=== PATIENT | female | born 1960 | race Caucasian/White ===

== ENCOUNTER 2017-11-20 16:03 | Inpatient (IN) ==
[2017-11-20] MEDS ORDERED: 0.9 % Sodium Chloride 1,000 ML IVC ONE (16:43)
[2017-11-20] MEDS ORDERED: Acetaminophen 325 MG TABLET PO ONE (16:43)
--- NOTE | 2017-11-20 17:02 | Emergency Department Note ---
Disposition Clinical Impression: Community acquired pneumonia Disposition: Still a Patient Fever HPI - General Chief Complaint: ED Fever Stated Complaint: cough, fever Time Seen by Provider: 11/20/17 16:33 Source: patient Mode of arrival: private vehicle Limitations: no limitations Vital Signs Reviewed: Yes - History of Present Illness HPI Narrative: 57 y/o females presents with two days of productive cough, SOB and fatigue with left sided flank pain that radiates to her L shoulder. She denies CP, abd pain, N/V/D. She was given a prescription from her PCP for steroids yesterday with concerns of bronchitis. - Related Data Allergies Allergy/AdvReac Type Severity Reaction Status Date / Time No Known Allergies Allergy Verified 11/20/17 16:32 Constitutional: Reports: as per HPI Cardiovascular: Denies: chest pain, palpitations, syncope Respiratory: Reports: cough, sputum production Gastrointestinal: Reports: as per HPI Genitourinary: Reports: as per HPI Fever PMH - Past Medical History Medical history: Reports: arthritis, hyperlipidemia, hypertension, other Surgical history: Reports: other Psychiatric history: Reports: anxiety - Social History Smoking Status: Current every day smoker Alcohol use: Reports: none Drug use: Reports: none Physical Exam - General Limitations: no limitations General appearance: alert, in no apparent distress Course Vital Signs Temperature 102 F H 11/20/17 16:29 Pulse Rate 102 11/20/17 16:29 Respiratory Rate 16 11/20/17 16:29 Blood Pressure 125/71 11/20/17 16:29 O2 Sat by Pulse Oximetry 89 11/20/17 16:29 Temperature 102 F H 11/20/17 16:29 Pulse Rate 102 11/20/17 16:29 Respiratory Rate 16 11/20/17 16:29 Blood Pressure 125/71 11/20/17 16:29 O2 Sat by Pulse Oximetry 89 11/20/17 16:29 Oxygen Delivery Oxygen Delivery Room Air
[2017-11-20] MEDS ORDERED: Ipratropium/Albuterol Neb 3 ML IH ONE (17:40)
[2017-11-20] MEDS ORDERED: methylPREDNISolone 125 MG/2 ML VIAL IVP ONE (17:40)
[2017-11-20 17:46] LABS: Basophils % 0.2 %
[2017-11-20 17:47] LABS: Basophils # 0.1 K/mcL (0.0-0.2); Hematocrit 32.3 % (35.3-44.9); Hemoglobin 10.1 g/dL (11.5-15.4); Immature Granulocytes % 1.4 % (0-4); Lymphocytes # 1.8 K/mcL (0.6-4.6); Lymphocytes % 6.4 %; Mean Corpuscular HGB Conc 31.3 g/dL (31.6-35.5); Mean Corpuscular Hemoglobin 26.3 pg (28.0-33.3); Mean Corpuscular Volume 84.1 fL (83.0-100.0); Mean Platelet Volume 10.9 fL (9.4-12.4); Monocytes # 1.4 K/mcL (0.0-1.3); Monocytes % 5.1 %; Neutrophils # 24.5 K/mcL (1.6-8.9); Platelet Count 162 K/mcL (140-400); Red Blood Count 3.84 M/mcL (3.82-4.97); Red Cell Distribution Width 16.8 % (11.5-14.5); Segmented Neutrophils % 86.9 %
[2017-11-20 18:08] LABS: Hypochromasia Present (Not Present); Platelet Estimate Normal (Normal); Reactive Lymphocytes Present (Not Present); Troponin I 0.03 ng/mL (< 0.04)
[2017-11-20 18:16] LABS: BUN/Creatinine Ratio 19 (6-26); Blood Urea Nitrogen 16 mg/dL (6-20); Calcium 8.8 mg/dL (8.6-10.3); Carbon Dioxide 25 mEq/L (23-29); Chloride 105 mEq/L (98-107); Glucose 108 mg/dL (70-105); Osmolality,Calculated 288 (280-300); Potassium 3.5 mEq/L (3.5-5.1); Sodium 138 mEq/L (136-145); eGFR For Non-African Americans > 60 (> 60)
--- NOTE | 2017-11-20 18:17 | Emergency Department Note ---
Disposition Clinical Impression: COPD exacerbation Community acquired pneumonia Qualifiers: Laterality: left Lung location: lower lobe of lung Qualified Code(s): J18.1 - Lobar pneumonia, unspecified organism Sepsis Qualifiers: Sepsis type: sepsis due to unspecified organism Qualified Code(s): A41.9 - Sepsis, unspecified organism Disposition: Admitted As Inpatient Referrals: Tabby Pelaez MD [Primary Care Provider] - Forms: ED Satisfaction Letter General Adult HPI - General Chief complaint: ED Fever Stated complaint: cough, fever Time Seen by Provider: 11/20/17 16:33 Source: patient Mode of arrival: private vehicle Limitations: no limitations Nursing Notes Reviewed: Yes Vital Signs Reviewed: Yes - History of Present Illness HPI Narrative: I have re-performed and reviewed the history documented by the medical student, and I confirm its accuracy except as noted below 57-year-old female history of non-oxygen dependent COPD presenting with several days of cough with fever starting today. No sick contacts. Productive sputum. Temperature of 101 prior to arrival at home. Denies any chest pain or shortness of breath. She called her doctor yesterday who phoned in steroids for her to start. No history of CAD, DVT or PE. No other complaints. Pt Subjective Complaint: Cough, fever Onset (ago): day(s) Pain Scale: 7 Consistency: constant Improves with: nothing Worsens with: nothing Associated symptoms: Reports: cough, fever/chills. Denies: chest pain, nausea/ vomiting, shortness of breath Treatments Prior to Arrival: none - Related Data Home Medications Medication Instructions Recorded Confirmed Atorvastatin [Lipitor] 40 mg PO HS 11/20/17 11/20/17 Citalopram [CeleXA] 20 mg PO DAILY 11/20/17 11/20/17 Ergocalciferol (VITAMIN D2) 50,000 unit PO QWEEK 11/20/17 11/20/17 [Vitamin D2] Ferrous Sulfate [Iron] 325 mg PO DAILY 11/20/17 11/20/17 Furosemide [Lasix] 20 mg PO DAILY 11/20/17 11/20/17 Isosorbide MONOnitrate (24 HR) 30 mg PO DAILY 11/20/17 11/20/17 [Imdur] LORazepam [Ativan] 0.5 mg PO BID PRN 11/20/17 11/20/17 Labetalol HCl 200 mg PO BID 11/20/17 11/20/17 PredniSONE [Deltasone] 40 mg PO DAILY 11/20/17 11/20/17 amLODIPine [Norvasc] 5 mg PO BID 11/20/17 11/20/17 cloNIDine HCl [CloNIDine HCl] 0.2 mg PO DAILY 11/20/17 11/20/17 hydrALAZINE [HydrALAZINE] 25 mg PO Q8HR 11/20/17 11/20/17 Allergies Allergy/AdvReac Type Severity Reaction Status Date / Time No Known Allergies Allergy Verified 11/20/17 16:32 All systems ED: reviewed and negative except as stated. Constitutional: Reports: fever, chills Cardiovascular: Denies: chest pain, palpitations Respiratory: Reports: cough, dyspnea, wheezes, sputum production Past Medical History - Past Medical History Attestation: Yes The following information was validated with the patient. Source: patient Medical history: Reports: arthritis, hyperlipidemia, hypertension, other Surgical history: Reports: other Psychiatric history: Reports: anxiety - Social History Smoking Status: Current every day smoker Alcohol use: Reports: none Drug use: Reports: none Physical Exam - General Limitations: no limitations General appearance: alert, in no apparent distress - Head Head exam: atraumatic, normocephalic - Eye Eye exam: Present: normal appearance - ENT ENT exam: normal exam - Neck Neck exam: Present: normal inspection - Chest Chest inspection: Present: normal inspection, symmetric chest wall rise - Respiratory Respiratory exam: Present: other (Global end expiratory wheezing with left lower diminished breath sounds.) - Cardiovascular Cardiovascular exam: Present: normal rhythm, tachycardia, normal heart sounds - Abdominal Exam Abdominal exam: Present: soft, Non-Tender. Absent: tenderness, distention, rigidity - Extremities Exam Extremities exam: Present: normal inspection, full ROM - Expanded Upper Extremity Exam Shoulder exam: Present: normal inspection, full ROM Arm exam: Present: normal inspection, full ROM Elbow exam: Present: normal inspection, full ROM Forearm/Wrist exam: Present: normal inspection, full ROM Hand exam: Present: normal inspection, full ROM - Expanded Lower Extremity Exam Hip/Pelvis exam: Present: normal inspection, full ROM Upper leg exam: Present: normal inspection, full ROM Knee exam: Present: normal inspection, full ROM Lower leg exam: Present: normal inspection, full ROM Ankle exam: Present: normal inspection, full ROM Foot/toe exam: Present: normal inspection, full ROM - Skin Skin exam: Present: warm, dry Course Course Narrative: Patient seen and examined. Vital signs reviewed. Plan for EKG, chest x-ray, labs including lactate and blood cultures given her fever and tachycardia. DuoNeb treatments and steroids ordered. - Reevaluation(s) Reevaluation #1: Patient ambulated here desaturating to 88%. Agreeable with admission. Vital Signs Temperature 102 F H 11/20/17 16:29 Pulse Rate 102 11/20/17 16:29 Respiratory Rate 16 11/20/17 16:29 Blood Pressure 125/71 11/20/17 16:29 O2 Sat by Pulse Oximetry 89 11/20/17 16:29 Temperature 98.9 F 11/20/17 20:45 Pulse Rate 83 11/20/17 20:45 Respiratory Rate 18 11/20/17 20:45 Blood Pressure 113/68 11/20/17 20:45 O2 Sat by Pulse Oximetry 96 11/20/17 20:45 Oxygen Delivery Oxygen Delivery Nasal Cannula Medical Decision Making - [facility] Narrative Medical decision making narrative: 57-year-old female presenting with several days of cough and shortness of breath. Recent bronchitis on steroids. Chest x-ray here showing a left lower lobe consolidation. She was hypoxic here with ambulation. Leukocytosis of 28 in the setting of pneumonia as well as recent steroid use. The patient given IV fluids, Tylenol, Levaquin for [facility] pneumonia. She received DuoNeb treatments and steroids as well. - Lab Data Lab results reviewed: Yes I reviewed the patient's lab results. Result diagrams: 11/20/17 17:25 11/20/17 17:25 Lab Results 11/20/17 11/20/17 11/20/17 Range/Units 17:25 17:25 17:25 WBC 28.2 H (4.3-11.1) K/mcL RBC 3.84 (3.82-4.97) M/mcL Hgb 10.1 L (11.5-15.4) g/dL Hct 32.3 L (35.3-44.9) % MCV 84.1 (83.0-100.0) fL MCH 26.3 L (28.0-33.3) pg MCHC 31.3 L (31.6-35.5) g/dL RDW 16.8 H (11.5-14.5) % Plt Count 162 (140-400) K/mcL MPV 10.9 (9.4-12.4) fL Immature Gran % 1.4 (0-4) % Seg Neutrophils % 86.9 % Lymphocytes % 6.4 % Monocytes % 5.1 % Eosinophils % 0.0 % Basophils % 0.2 % Neutrophils # 24.5 H (1.6-8.9) K/mcL Lymphocytes # 1.8 (0.6-4.6) K/mcL Monocytes # 1.4 H (0.0-1.3) K/mcL Eosinophils # 0.0 (0.0-0.6) K/mcL Basophils # 0.1 (0.0-0.2) K/mcL Reactive Lymphocytes Present A (Not Present) Platelet Estimate Normal (Normal) Hypochromasia Present A (Not Present) Sodium 138 (136-145) mEq/L Potassium 3.5 (3.5-5.1) mEq/L Chloride 105 (98-107) mEq/L Carbon Dioxide 25 (23-29) mEq/L BUN 16 (6-20) mg/dL Creatinine 0.83 (0.60-1.20) mg/dL Est GFR ( Amer) > 60 (> 60) Est GFR (Non-Af Amer) > 60 (> 60) BUN/Creatinine Ratio 19 (6-26) Glucose 108 H (70-105) mg/dL Calculated Osmolality 288 (280-300) Lactic Acid 1.0 (0.5-2.2) mmol/L Calcium 8.8 (8.6-10.3) mg/dL Troponin I 0.03 (< 0.04) ng/mL - Radiology Data Radiology results reviewed: Yes I reviewed the patient's radiology results. Chest X-Ray 11/20/17 16:43 IMPRESSION: Left basilar consolidation, concerning for pneumonia. Recommend follow-up radiographs after treatment to document resolution. Small left effusion. D/ / Miles Lux MD / Miles Lux MD Interpreting Provider: Miles Lux MD - EKG Data EKG #1 EKG attestation: Yes I reviewed and interpreted this EKG. EKG results narrative: EKG demonstrates sinus tachycardia with a rate of 104. Normal axis. Normal intervals. Normal R-wave progression. No gross ST elevations or depressions. No acute ischemic findings. No significant changes from previous EKG dated 04/07. Jaleesa - Jaleesa Situation: Demographics, MOA Background: Presenting Complaint, Relevant PMH, Meds, & Allergies Assessment: Vital Signs, Course and respsone to treatment, Exam Concerns, Patient/Family Expectation, Pertinant Lab Results Recommendation: Barrier(s) to disposition, Recommendation based on pending studies, treatments, or consults SHazel Report Given to: Dr. Sugey Lazcano Repor Time: 20:59 Attestation Statement - Attestation Attestation: I, Lenny Beavers, examined this patient and my medical decision-making was reviewed with the SUPER[employer]/PA/Advanced Practice Nurse/Resident Physician. I agree with the documented findings, disposition and treatment plan as described except to the extent set forth below. 87-year-old female presents emergency Department with concerns of difficulty breathing and cough. Patient states symptoms have been worsening over the past few days. She was prescribed steroids by her primary care provider yesterday and has taken multiple list. Patient reported a fever and worsening of her symptoms today around 11:00. Patient has a likely pneumonia on her chest x- ray. She will be treated for community-acquired pneumonia. Patient initially wanted to return home however with ambulation she desatted to 88%. She felt comfortable with the plan for admission to the hospital for further care and evaluation.
[2017-11-20] MEDS ORDERED: Levofloxacin 750 MG/150 ML 750 MG/150 ML BAG IVPB ONE (18:43)
[2017-11-20] MEDS ORDERED: Naloxone 0.4 MG/ML INJ IVP PRN (21:05)
--- NOTE | 2017-11-20 21:12 | Internal Med History&Physical ---
Date of Encounter: 11/20/17 Time of Encounter: 21:10 Internal Medicine - H&P: HPI Chief complaint: Left chest wall pain Admitted From: Home Plans for Post Hospital Care: Home History of present illness: Ms. Frost is a 57 year old female presented with chief complaint of left chest wall pain located left axillary line between ribs 8 and 9 this started when she woke up this morning at 6 AM. Her pain worsened with coughing, deep inspiration. She also states she had fever of 101 at home. She reports for the past 2 days she has had worsening cough, productive sputum and was given prednisone by her PCP for bronchitis. Patient also reports chills, runny nose, congestion. She denies sore throat, sick contacts. At home she is not on oxygen per currently is requiring 2 L. In the ER chest x-ray showed left lower lobe consolidation and she had elevated white blood cell count of 28 with a fever of 102 degrees. The patient has a history of [id number] smoking. Past Med Surg Social Fam HX - Past Medical History Medical history: arthritis, hyperlipidemia, hypertension, other Additional medical history: chronic kidney disease, renal artery stenosis Psychiatric history: anxiety - Past Surgical History Surgical History: other, vascular surgery (Bilateral renal artery stents) Additional surgical history: tubal - Social History Smoking Status: Current every day smoker Alcohol use: none Drug use: none Occupational status: employed ([employer] cook) - Family History Brother Living Status: Still Living Hx Family Cancer: Yes (Colon cancer) Sister Living Status: Hx Family Cancer: Yes Father Living Status: Hx Family Cancer: Yes (Lung cancer) Internal Medicine - H&P: Meds Atorvastatin [Lipitor] 40 mg PO HS 11/20/17 [History] Citalopram [CeleXA] 20 mg PO DAILY 11/20/17 [History] Ergocalciferol (VITAMIN D2) [Vitamin D2] 50,000 unit PO QWEEK 11/20/17 [History] Ferrous Sulfate [Iron] 325 mg PO DAILY 11/20/17 [History] Furosemide [Lasix] 20 mg PO DAILY 11/20/17 [History] Isosorbide MONOnitrate (24 HR) [Imdur] 30 mg PO DAILY 11/20/17 [History] LORazepam [Ativan] 0.5 mg PO BID PRN 11/20/17 [History] Labetalol HCl 200 mg PO BID 11/20/17 [History] PredniSONE [Deltasone] 40 mg PO DAILY 11/20/17 [History] amLODIPine [Norvasc] 5 mg PO BID 11/20/17 [History] cloNIDine HCl [CloNIDine HCl] 0.2 mg PO DAILY 11/20/17 [History] hydrALAZINE [HydrALAZINE] 25 mg PO Q8HR 11/20/17 [History] 3 Allergy/AdvReac Type Severity Reaction Status Date / Time No Known Allergies Allergy Verified 11/20/17 16:32 All Systems PM: A 10-system review of systems was performed and is negative for pertinent findings except as documented above in the HPI. Review of systems: Constitutional: Ports fever chills HEENT: Denies headache, vision changes, neck pain, sore throat, ear discharge reports rhinorrhea Heart: Denies chest pain palpitations Lungs: Reports shortness of breath, cough, sputum production Abdomen: Denies abdominal pain nausea vomiting diarrhea Back: Denies back pain Kidney: Denies dysuria, hematuria Skin: Denies rash, lesions Extremities: Denies swelling, pain Neuro: Denies numbness and tingling - Constitutional Vitals: Temp Pulse Resp BP Pulse Ox 98.9 F 83 18 113/68 96 11/20/17 20:45 11/20/17 20:45 11/20/17 20:45 11/20/17 20:45 11/20/17 20:45 Exam: General: without distress HEENT: Head atraumatic, normocephalic, EOMI, PERRL, neck nontender to palpation , absent lymphadenopathy, Moist Mucous Membranes, absent erythema Heart: Regular rate and rhythm with no murmur Lungs: Diminished lung sounds bilaterally greater on the left lower lobe. Poor respiratory effort. Abdomen: Soft nontender, nondistended positive bowel sounds Skin: warm and dry, absent rash Extremities: Mild pedal edema bilaterally Neuro: Cranial nerves II through XII intact, UE and LE sensation equal bilaterally, UE and LEstrength 5/5, alert oriented 3, Vascular: Pedal and radial pulses 2 out of 4 Internal Med - H&P Results - Labs CBC & Chem 7: 11/20/17 17:25 11/20/17 17:25 Labs: Short CBC 11/20/17 Range/Units 17:25 WBC 28.2 H (4.3-11.1) K/mcL Hgb 10.1 L (11.5-15.4) g/dL Hct 32.3 L (35.3-44.9) % Plt Count 162 (140-400) K/mcL Neutrophils # 24.5 H (1.6-8.9) K/mcL BMP 11/20/17 17:25 Sodium 138 Potassium 3.5 Chloride 105 Carbon Dioxide 25 BUN 16 Creatinine 0.83 Glucose 108 H Calcium 8.8 Cardiac Enzymes 11/20/17 Range/Units 17:25 Troponin I 0.03 (< 0.04) ng/mL - Impressions ITS Impressions Chest X-Ray 11/20/17 16:43 IMPRESSION: Left basilar consolidation, concerning for pneumonia. Recommend follow-up radiographs after treatment to document resolution. Small left effusion. D/ / Miles Lux MD / Miles Lux MD Interpreting Provider: Miles Lux MD - Assessment and plan (1) Acute and chronic respiratory failure with hypoxia Current Visit: Yes Status: Acute Assessment and plan: 57-year-old female presents with chief complaint of left pleuritic chest pain, shortness of breath along with cough and productive sputum found to have left lower lobe pneumonia on chest x-ray Patient does not use oxygen at home is currently on 4 L. We will start patient on ceftriaxone and azithromycin, DuoNeb's, prednisone and continue oxygen supplementation with goal of oxygen saturation of 88%. mucinex. (2) Sepsis Current Visit: Yes Status: Acute Assessment and plan: Patient sepsis secondary to pneumonia Patient was febrile, tachycardic, tachypneic Lactic acid within normal limits. She will be receiving 3 L total of normal saline She is on antibiotics as above. Qualifiers: Sepsis type: sepsis due to unspecified organism Qualified Code(s): A41.9 - Sepsis, unspecified organism (3) Community acquired pneumonia Current Visit: Yes Status: Acute Assessment and plan: Patient has findings of left lower normal pneumonia, bacterial She will be treated with IV antibiotics as stated above. Blood cultures drawn, de-escalate antibiotics as per culture sensitivity. Ordering urine Legionella and streptococcal pneumonia antigens. Qualifiers: Laterality: left Lung location: lower lobe of lung Qualified Code(s): J18.1 - Lobar pneumonia, unspecified organism (4) COPD exacerbation Current Visit: Yes Status: Acute Assessment and plan: Secondary to coming acquired pneumonia Patient will be treated with IV antibiotics, DuoNeb's, prednisone (5) History of hypertension Current Visit: Yes Status: Acute Assessment and plan: Patient has a history of hypertension currently controlled We will continue clonidine, Lasix, amlodipine, labetalol. (6) History of tobacco abuse Current Visit: Yes Status: Acute Assessment and plan: Patient has a history of tobacco abuse [id number] She was educated on smoking cessation and its benefits. (7) DVT prophylaxis Current Visit: Yes Status: Acute Assessment and plan: Heparin subcutaneous (8) History of hyperlipidemia Current Visit: Yes Status: Acute Assessment and plan: Continue statin. - Time Spent With Patient Total time spent is greater than 50% in coordination of care (as documented) at patient's floor/unit and/or counseling patient:
[2017-11-20] MEDS ORDERED: Acetaminophen 325 MG TABLET PO PRN (21:28)
[2017-11-20] MEDS ORDERED: cefTRIAXone 2,000 MG in Water for inj. (sterile) 20 ML 20 ML IVP SCH (22:00)
[2017-11-20] MEDS ORDERED: Azithromycin 500 MG in D5% in Water 250 ML IVPB SCH (22:00)
[2017-11-20] MEDS: Ipratropium/Albuterol Neb 3 ML IH SCH (22:24)
[2017-11-20] MEDS: 0.9 % Sodium Chloride 1,000 ML IVC SCH (22:55)
[2017-11-20] MEDS: *HR* Heparin 5,000 UNIT/ML VIAL SQ SCH (22:56)
[2017-11-21] MEDS ORDERED: hydrALAZINE 25 MG TABLET PO SCH
[2017-11-21] MEDS: Ipratropium/Albuterol Neb 3 ML IH SCH ×4 (03:44→21:49)
[2017-11-21 04:37] LABS: Basophils % 0.1 %
[2017-11-21 04:39] LABS: Hematocrit 32.5 % (35.3-44.9); Hemoglobin 10.2 g/dL (11.5-15.4); Immature Granulocytes % 1.4 % (0-4); Lymphocytes # 1.1 K/mcL (0.6-4.6); Lymphocytes % 3.7 %; Mean Corpuscular HGB Conc 31.4 g/dL (31.6-35.5); Mean Corpuscular Hemoglobin 26.8 pg (28.0-33.3); Mean Corpuscular Volume 85.5 fL (83.0-100.0); Mean Platelet Volume 10.7 fL (9.4-12.4); Monocytes # 0.5 K/mcL (0.0-1.3); Monocytes % 1.6 %; Neutrophils # 28.3 K/mcL (1.6-8.9); Platelet Count 146 K/mcL (140-400); Red Cell Distribution Width 16.9 % (11.5-14.5); Segmented Neutrophils % 93.2 %
[2017-11-21 04:57] LABS: BUN/Creatinine Ratio 22 (6-26); Blood Urea Nitrogen 15 mg/dL (6-20); Calcium 8.4 mg/dL (8.6-10.3); Carbon Dioxide 25 mEq/L (23-29); Chloride 108 mEq/L (98-107); Glucose 210 mg/dL (70-105); Osmolality,Calculated 293 (280-300); Potassium 3.5 mEq/L (3.5-5.1); Sodium 138 mEq/L (136-145); eGFR For Non-African Americans > 60 (> 60)
[2017-11-21 05:18] LABS: Platelet Estimate Normal (Normal)
[2017-11-21] MEDS: *HR* Heparin 5,000 UNIT/ML VIAL SQ SCH ×3 (06:13→22:15)
[2017-11-21] MEDS: 0.9 % Sodium Chloride 1,000 ML IVC SCH (08:36)
[2017-11-21] MEDS: cefTRIAXone 2,000 MG in Water for inj. (sterile) 20 ML 20 ML IVP SCH (08:38)
[2017-11-21] MEDS: predniSONE 20 MG TABLET PO SCH (08:38)
[2017-11-21] MEDS: Furosemide 20 MG TABLET PO SCH (08:38)
[2017-11-21] MEDS: cloNIDine HCl 0.1 MG TABLET PO SCH (08:38)
[2017-11-21] MEDS: Isosorbide MONOnitrate (24 HR) 30 MG TAB.ER.24H PO SCH (08:38)
[2017-11-21] MEDS: amLODIPine 5 MG TABLET PO SCH ×2 (08:38→22:15)
[2017-11-21] MEDS: hydrALAZINE 25 MG TABLET PO SCH ×3 (08:38→22:14)
--- NOTE | 2017-11-21 09:23 | Internal Med Progress Note ---
Hospitalist Progress Note - Encounter Date of Encounter: 11/21/17 Time of Encounter: 11:00 - Subjective Interval History: Patient presented with fever and cough found to have sepsis secondary to pneumonia and COPD exacerbation Reports that she is feeling somewhat better and cough has decreased slightly. Will wean O2 as tolerates - Exam Vitals: Temp Pulse Resp BP Pulse Ox 98.4 F 88 18 119/55 92 11/21/17 07:29 11/21/17 07:29 11/21/17 07:29 11/21/17 07:29 11/21/17 07:29 Exam: Gen.: Nonacute distress, alert and oriented 3 ENT: Mucosal membranes moist Respiratory: Lungs are clear to auscultation bilaterally without any wheezing rhonchi or rales Cardiovascular: Normal S1 and S2 regular rate rhythm no murmurs rubs or gallops Abdomen: Soft, nontender and nondistended with positive bowel sounds Extremities: No lower extremity edema Skin: Normal color - Assessment and Plan (1) Sepsis Current Visit: Yes Status: Acute Assessment and Plan: Patient sepsis secondary to pneumonia Patient has received a total of 2 L of fluid bolus and on IV antibiotics She no longer tachycardic and is currently afebrile; she is leukocytosis worsening: wbc 28.2->30.4 Continue current management as below (2) Community acquired pneumonia Current Visit: Yes Status: Acute Assessment and Plan: X-ray finding findings of left lower normal pneumonia Worsening of leukocytosis but patient afebrile Blood cultures, urine Legionella and streptococcal pneumonia antigens pending Continue day 2 IV ceftriaxone and IV azithromycin (3) COPD exacerbation Current Visit: Yes Status: Acute Assessment and Plan: Secondary to the above Will continue scheduled DuoNeb's and oral prednisone (4) Acute and chronic respiratory failure with hypoxia Current Visit: Yes Status: Acute Assessment and Plan: Respiratory failure secondary to pneumonia and COPD exacerbation as above Will wean supplemental oxygenation as tolerates to keep O2 sats between 88 and 92% (5) History of hypertension Current Visit: Yes Status: Acute Assessment and Plan: Controlled; continue clonidine, Lasix, amlodipine, labetalol. (6) History of tobacco abuse Current Visit: Yes Status: Acute Assessment and Plan: Patient has a history of tobacco abuse [id number] She was educated on smoking cessation and its benefits. (7) History of hyperlipidemia Current Visit: Yes Status: Acute Assessment and Plan: Continue statin. (8) DVT prophylaxis Current Visit: Yes Status: Acute Assessment and Plan: Heparin subcutaneous - Time Spent with Patient Total time spent is greater than 50% in coordination of care (as documented) at patient's floor/unit and/or counseling patient: Internal Medicine: Result - Labs CBC & Chem 7: 11/21/17 04:14 11/21/17 04:14 Labs: Short CBC 11/21/17 Range/Units 04:14 WBC 30.4 H* (4.3-11.1) K/mcL Hgb 10.2 L (11.5-15.4) g/dL Hct 32.5 L (35.3-44.9) % Plt Count 146 (140-400) K/mcL Neutrophils # 28.3 H (1.6-8.9) K/mcL BMP 11/21/17 04:14 Sodium 138 Potassium 3.5 Chloride 108 H Carbon Dioxide 25 BUN 15 Creatinine 0.68 Glucose 210 H Calcium 8.4 L Consult Discharge Plan - Plan Referrals: Tabby Pelaez MD [Primary Care Provider] - (1) Sepsis Qualifiers: Sepsis type: sepsis due to unspecified organism Qualified Code(s): A41.9 - Sepsis, unspecified organism (2) Community acquired pneumonia Qualifiers: Laterality: left Lung location: lower lobe of lung Qualified Code(s): J18.1 - Lobar pneumonia, unspecified organism
[2017-11-21] MEDS: Azithromycin 500 MG in D5% in Water 250 ML IVPB SCH (16:50)
[2017-11-22] MEDS: Ipratropium/Albuterol Neb 3 ML IH SCH ×4 (03:13→22:34)
[2017-11-22 05:07] LABS: Basophils % 0.1 %; Lymphocytes % 6.5 %
[2017-11-22 05:08] LABS: Hematocrit 29.2 % (35.3-44.9); Immature Granulocytes % 1.3 % (0-4); Lymphocytes # 1.8 K/mcL (0.6-4.6); Mean Corpuscular HGB Conc 30.8 g/dL (31.6-35.5); Mean Corpuscular Hemoglobin 26.2 pg (28.0-33.3); Mean Corpuscular Volume 85.1 fL (83.0-100.0); Mean Platelet Volume 11.3 fL (9.4-12.4); Monocytes # 0.8 K/mcL (0.0-1.3); Platelet Count 134 K/mcL (140-400); Red Blood Count 3.43 M/mcL (3.82-4.97); Segmented Neutrophils % 89.1 %
[2017-11-22 05:10] LABS: Neutrophils # 24.1 K/mcL (1.6-8.9)
[2017-11-22 05:28] LABS: BUN/Creatinine Ratio 28 (6-26); Blood Urea Nitrogen 21 mg/dL (6-20); Calcium 8.8 mg/dL (8.6-10.3); Carbon Dioxide 23 mEq/L (23-29); Chloride 111 mEq/L (98-107); Glucose 115 mg/dL (70-105); Osmolality,Calculated 294 (280-300); Potassium 3.4 mEq/L (3.5-5.1); Sodium 140 mEq/L (136-145); eGFR For Non-African Americans > 60 (> 60)
[2017-11-22 05:35] LABS: Platelet Estimate Normal (Normal)
[2017-11-22] MEDS: *HR* Heparin 5,000 UNIT/ML VIAL SQ SCH ×3 (05:56→22:03)
--- NOTE | 2017-11-22 08:22 | Internal Med Progress Note ---
Hospitalist Progress Note - Encounter Date of Encounter: 11/22/17 Time of Encounter: 11:00 - Subjective Interval History: Patient presented with fever and cough found to have sepsis secondary to pneumonia and COPD exacerbation with acute hypoxic respiratory failure Patient was weaned off supplemental oxygenation this morning however still with significant leukocytosis with not much improvement Patient also still with productive cough - Exam Vitals: Temp Pulse Resp BP Pulse Ox 98.3 F 97 18 114/67 93 11/22/17 07:25 11/22/17 07:11/22/17 07:11/22/17 07:11/22/17 07:25 Exam: Gen.: Nonacute distress, alert and oriented 3 ENT: Mucosal membranes moist Respiratory: Patient with bilateral decreased expiratory wheezes and not with good airflow Cardiovascular: Normal S1 and S2 regular rate rhythm no murmurs rubs or gallops Abdomen: Soft, nontender and nondistended with positive bowel sounds Extremities: No lower extremity edema Skin: Normal color - Assessment and Plan (1) Community acquired pneumonia Current Visit: Yes Status: Acute Assessment and Plan: Chest x-ray showed left basilar consolidation Patient with not much improvement in leukocytosis(WBC 28.2->30.4->27.0) but has been afebrile Legionella and streptococcal pneumonia antigens negative and blood cultures pending Continue day 3 IV ceftriaxone and IV azithromycin (2) COPD exacerbation Current Visit: Yes Status: Acute Assessment and Plan: Secondary to the above Will continue scheduled DuoNeb's and oral prednisone (3) Acute and chronic respiratory failure with hypoxia Current Visit: Yes Status: Acute Assessment and Plan: Respiratory failure secondary to pneumonia and COPD exacerbation as above Patient was able to be weaned off supplemental oxygenation this afternoon (4) Sepsis Current Visit: Yes Status: Acute Assessment and Plan: Resolved; continue to monitor (5) History of hypertension Current Visit: Yes Status: Acute Assessment and Plan: Controlled; continue clonidine, Lasix, amlodipine, labetalol. (6) History of tobacco abuse Current Visit: Yes Status: Acute Assessment and Plan: Patient has a history of tobacco abuse [id number] She was educated on smoking cessation and its benefits. (7) History of hyperlipidemia Current Visit: Yes Status: Acute Assessment and Plan: Continue statin. (8) DVT prophylaxis Current Visit: Yes Status: Acute Assessment and Plan: Heparin subcutaneous - Time Spent with Patient Total time spent is greater than 50% in coordination of care (as documented) at patient's floor/unit and/or counseling patient: Internal Medicine: Result - Labs CBC & Chem 7: 11/22/17 04:43 11/22/17 04:43 Labs: Short CBC 11/22/17 Range/Units 04:43 WBC 27.0 H (4.3-11.1) K/mcL Hgb 9.0 L (11.5-15.4) g/dL Hct 29.2 L (35.3-44.9) % Plt Count 134 L (140-400) K/mcL Neutrophils # 24.1 H (1.6-8.9) K/mcL BMP 11/22/17 04:43 Sodium 140 Potassium 3.4 L Chloride 111 H Carbon Dioxide 23 BUN 21 H Creatinine 0.75 Glucose 115 H Calcium 8.8 Consult Discharge Plan - Plan Referrals: Tabby Pelaez MD [Primary Care Provider] - (1) Community acquired pneumonia Qualifiers: Laterality: left Lung location: lower lobe of lung Qualified Code(s): J18.1 - Lobar pneumonia, unspecified organism (4) Sepsis Qualifiers: Sepsis type: sepsis due to unspecified organism Qualified Code(s): A41.9 - Sepsis, unspecified organism
[2017-11-22] MEDS: predniSONE 20 MG TABLET PO SCH (08:41)
[2017-11-22] MEDS: cloNIDine HCl 0.1 MG TABLET PO SCH ×2 (08:42→08:54)
[2017-11-22] MEDS: hydrALAZINE 25 MG TABLET PO SCH ×3 (08:42→20:23)
[2017-11-22] MEDS: amLODIPine 5 MG TABLET PO SCH ×2 (08:42→20:23)
[2017-11-22] MEDS: Isosorbide MONOnitrate (24 HR) 30 MG TAB.ER.24H PO SCH (08:43)
[2017-11-22] MEDS: Furosemide 20 MG TABLET PO SCH (08:43)
[2017-11-22] MEDS: cefTRIAXone 2,000 MG in Water for inj. (sterile) 20 ML 20 ML IVP SCH (08:46)
[2017-11-22] MEDS: Azithromycin 500 MG in D5% in Water 250 ML IVPB SCH (17:11)
[2017-11-23] MEDS: Ipratropium/Albuterol Neb 3 ML IH SCH ×2 (03:19→10:48)
[2017-11-23 03:40] LABS: Basophils % 0.1 %; Hematocrit 30.2 % (35.3-44.9); Hemoglobin 9.5 g/dL (11.5-15.4); Immature Granulocytes % 0.9 % (0-4); Lymphocytes # 2.6 K/mcL (0.6-4.6); Lymphocytes % 12.4 %; Mean Corpuscular HGB Conc 31.5 g/dL (31.6-35.5); Mean Corpuscular Hemoglobin 26.5 pg (28.0-33.3); Mean Corpuscular Volume 84.4 fL (83.0-100.0); Mean Platelet Volume 11.3 fL (9.4-12.4); Monocytes # 0.8 K/mcL (0.0-1.3); Monocytes % 3.7 %; Neutrophils # 17.1 K/mcL (1.6-8.9); Platelet Count 160 K/mcL (140-400); Red Blood Count 3.58 M/mcL (3.82-4.97); Red Cell Distribution Width 17.1 % (11.5-14.5); Segmented Neutrophils % 82.9 %
[2017-11-23 03:59] LABS: BUN/Creatinine Ratio 26 (6-26); Blood Urea Nitrogen 16 mg/dL (6-20); Calcium 8.7 mg/dL (8.6-10.3); Carbon Dioxide 25 mEq/L (23-29); Chloride 111 mEq/L (98-107); Glucose 95 mg/dL (70-105); Osmolality,Calculated 297 (280-300); Potassium 3.2 mEq/L (3.5-5.1); Sodium 143 mEq/L (136-145); eGFR For Non-African Americans > 60 (> 60)
[2017-11-23] MEDS: *HR* Heparin 5,000 UNIT/ML VIAL SQ SCH (05:31)
[2017-11-23] MEDS ORDERED: Potassium Chloride Elixir 20 MEQ/15 ML UDC PO ONE (05:44)
[2017-11-23] MEDS: Furosemide 20 MG TABLET PO SCH (08:20)
[2017-11-23] MEDS: amLODIPine 5 MG TABLET PO SCH (08:21)
[2017-11-23] MEDS: predniSONE 20 MG TABLET PO SCH (08:21)
[2017-11-23] MEDS: hydrALAZINE 25 MG TABLET PO SCH (08:21)
[2017-11-23] MEDS: Isosorbide MONOnitrate (24 HR) 30 MG TAB.ER.24H PO SCH (08:21)
[2017-11-23] MEDS: cefTRIAXone 2,000 MG in Water for inj. (sterile) 20 ML 20 ML IVP SCH (08:22)
[2017-11-23] MEDS: cloNIDine HCl 0.1 MG TABLET PO SCH (08:28)
[2017-11-23 11:06] VITALS: BP 134/73
--- NOTE | 2017-11-23 11:43 | Discharge Summary ---
- NOTES TO OUTPATIENT PROVIDER Notes to Outpatient Provider: Patient to follow-up with primary care provider for resolution of leukocytosis Date of Encounter: 11/23/17 Time of Encounter: 11:00 - Discharge Diagnosis (1) Community acquired pneumonia Priority: Primary Status: Acute Qualifiers: Laterality: left Lung location: lower lobe of lung Qualified Code(s): J18.1 - Lobar pneumonia, unspecified organism (2) COPD exacerbation Priority: Primary Status: Acute (3) Acute and chronic respiratory failure with hypoxia Priority: Primary Status: Acute (4) Sepsis Priority: Primary Status: Acute Qualifiers: Sepsis type: sepsis due to unspecified organism Qualified Code(s): A41.9 - Sepsis, unspecified organism (5) History of hypertension Priority: Secondary Status: Acute (6) History of tobacco abuse Priority: Secondary Status: Acute (7) History of hyperlipidemia Priority: Secondary Status: Acute Hospital course: Patient is a 57-year-old female with past medical history significant for hypertension, hyperlipidemia and chronic kidney disease presents the ER on due to cough and fevers. In the ER, patient was found to have left basilar consolidation on chest x-ray with leukocytosis. Patient was also found to have acute hypoxic respiratory failure and required supplemental oxygenation. Patient was admitted to medical surgical floor for acute hypoxic respiratory failure secondary to community acquired pneumonia and COPD exacerbation. During patients hospital stay her leukocytosis improved and she remained afebrile. Patient was able to be weaned off supplemental oxygenation. Patient will be discharged to complete a 5 day course of Levaquin and prednisone. - Time Spent with Patient Total time spent providing and/or coordinating discharge services: Less than 30 minutes - Discharge Medications Prescriptions: levoFLOXacin [Levaquin] 750 mg PO DAILY #5 tablet predniSONE [PredniSONE] 40 mg PO DAILY #10 tablet Home Medications: Atorvastatin [Lipitor] 40 mg PO HS 11/20/17 [History] Citalopram [CeleXA] 20 mg PO DAILY 11/20/17 [History] Ergocalciferol (VITAMIN D2) [Vitamin D2] 50,000 unit PO QWEEK 11/20/17 [History] Ferrous Sulfate [Iron] 325 mg PO DAILY 11/20/17 [History] Furosemide [Lasix] 20 mg PO DAILY 11/20/17 [History] Isosorbide MONOnitrate (24 HR) [Imdur] 30 mg PO DAILY 11/20/17 [History] LORazepam [Ativan] 0.5 mg PO BID PRN 11/20/17 [History] Labetalol HCl 200 mg PO BID 11/20/17 [History] amLODIPine [Norvasc] 5 mg PO BID 11/20/17 [History] cloNIDine HCl [CloNIDine HCl] 0.2 mg PO DAILY 11/20/17 [History] hydrALAZINE [HydrALAZINE] 25 mg PO Q8HR 11/20/17 [History] levoFLOXacin [Levaquin] 750 mg PO DAILY #5 tablet 11/23/17 [Rx] predniSONE [PredniSONE] 40 mg PO DAILY #10 tablet 11/23/17 [Rx] Allergies/Adverse Reactions: 3 Allergy/AdvReac Type Severity Reaction Status Date / Time No Known Allergies Allergy Verified 11/20/17 16:32 Date of admission: 11/22/17 18:57 Primary care physician: Tabby Pelaez MD - Constitutional Vitals: Temp Pulse Resp BP Pulse Ox 98.1 F 84 16 134/73 94 11/23/17 11:03 11/23/17 11:03 11/23/17 11:03 11/23/17 11:03 11/23/17 11:03 Exam: Gen.: Nonacute distress, alert and oriented 3 Respiratory: Lungs are clear to auscultation bilaterally without any wheezing rhonchi or rales - Patient Status Disposition: Home, Self-Care Condition: Good - Discharge Instructions Instructions: Prednisone (By mouth), Levofloxacin (Injection), Pneumonia (DC) Follow Up With: Tabby Pelaez MD [Primary Care Provider] - (Follow up with primary care provider within 5-7 days after discharge.)
--- NOTE | 2017-11-24 11:47 | Electrocardiograph Report ---
[place] [id number] Test Date: 2017-11-20 Pat Name: Selena Frost Department: [id number] Room: 2A Gender: F [employer] Up Operator: : [id number] Requested By: Scott Yeboah Order Number: [id number] Reading MD: Nader Monteiro Measurements Intervals [place] Rate: 104 P: 75 [place]: 141 QRS: 72 QRSD: 86 T: 29 QT: 318 QTc: 419 Interpretive Statements Sinus tachycardia Possible left atrial enlargement Electronically Signed On 11-24-2017 11:46:07 EDT by Nader Monteiro
== END 2017-11-23 12:40 | disposition home or self-care (01) | DRG 871 ==
LOC: 2ANU 16:03 → EMEROOARM 16:03 → SUATTDRO 21:20 → 2ANU 22:20
PROVIDERS: ADMIT Family Medicine; ATTEND Hospitalist

== ENCOUNTER 2021-03-26 11:46 | Inpatient (IN) ==
[2021-03-26] MEDS ORDERED: Pantoprazole 40 MG VIAL IVP ONE (12:04)
[2021-03-26] MEDS ORDERED: Ondansetron 4 MG/2 ML VIAL IVP PRN ×2 (12:04→14:27)
[2021-03-26] MEDS ORDERED: Isovue-370 500 ML BOTTLE IVP ONE (12:04)
[2021-03-26] MEDS ORDERED: Azithromycin 500 MG in 0.9 % Sodium Chloride 250 ML IVPB ONE (12:05)
[2021-03-26] MEDS ORDERED: methylPREDNISolone 125 MG/2 ML VIAL IVP ONE (12:05)
[2021-03-26] MEDS ORDERED: Ipratropium/Albuterol Neb 3 ML IH ONE (12:05)
[2021-03-26 12:27] LABS: VBG HCO3 30 mEq/L (21-27); VBG PCO2 65 mmHg (41-51); VBG PH 7.28 pH Units (7.32-7.42); VBG PO2 37 mmHg (25-50)
[2021-03-26 12:30] LABS: Basophils % 0.2 %; Eosinophils % 0.2 %; Hematocrit 35.7 % (35.3-44.9); Hemoglobin 10.4 g/dL (11.5-15.4); Immature Granulocytes % 0.7 % (0-4); Lymphocytes # 1.9 K/mcL (0.6-4.6); Lymphocytes % 11.8 %; Mean Corpuscular HGB Conc 29.1 g/dL (31.6-35.5); Mean Corpuscular Hemoglobin 26.4 pg (28.0-33.3); Mean Corpuscular Volume 90.6 fL (83.0-100.0); Monocytes % 6.3 %; Neutrophils # 12.8 K/mcL (1.6-8.9); Platelet Count 154 K/mcL (140-400); Red Blood Count 3.94 M/mcL (3.82-4.97); Red Cell Distribution Width 14.2 % (11.5-14.5); Segmented Neutrophils % 80.8 %; White Blood Count 15.8 K/mcL (4.3-11.1)
[2021-03-26 12:38] LABS: INR 1.2
[2021-03-26 12:41] LABS: Activated Partial Thrombo Time 28.1 Seconds (26.0-36.0)
[2021-03-26 12:56] LABS: Alanine Aminotransferase 13 Units/L (7-52); Albumin 3.7 g/dL (3.5-5.7); Albumin/Globulin Ratio 1.3 (1.1-2.2); Alkaline Phosphatase 116 Units/L (34-104); Aspartate Amino Transferase 14 Units/L (13-39); BUN/Creatinine Ratio 15 (6-26); Bilirubin,Direct 0.1 mg/dL (0.0-0.2); Bilirubin,Indirect 0.3 mg/dL (0.0-1.0); Bilirubin,Total 0.4 mg/dL (0.3-1.0); Blood Urea Nitrogen 15 mg/dL (8-23); Calcium 8.6 mg/dL (8.6-10.3); Carbon Dioxide 29 mEq/L (23-29); Chloride 102 mEq/L (98-107); Globulin 2.9 g/dL (2.4-3.5); Glucose 116 mg/dL (70-105); Osmolality,Calculated 278 (280-300); Potassium 3.5 mEq/L (3.5-5.1); Sodium 133 mEq/L (136-145); Total Protein 6.6 g/dL (6.4-8.9); Troponin I 1.02 ng/mL (< 0.04); eGFR For African Americans > 60 (> 60); eGFR For Non-African Americans 55 (> 60)
[2021-03-26] MEDS ORDERED: Aspirin 325 MG TABLET PO ONE (13:34)
[2021-03-26 13:38] LABS: Adenovirus Not Detected (Not Detect); Bordetella Pertussis Not Detected (Not Detect); Chlamydophila pneumoniae Not Detected (Not Detect); Coronavirus 229E Not Detected (Not Detect); Coronavirus HKU1 Not Detected (Not Detect); Coronavirus NL63 Not Detected (Not Detect); Coronavirus OC43 Not Detected (Not Detect); Human Metapneumovirus DETECTED (Not Detect); Human Rhinovirus/Enterovirus Not Detected (Not Detect); Influenza A Subtype 2009 H1 Not Detected (Not Detect); Influenza B Not Detected (Not Detect); Mycoplasma pneumoniae Not Detected (Not Detect); Parainfluenza Virus 1 Not Detected (Not Detect); Parainfluenza Virus 2 Not Detected (Not Detect); Parainfluenza Virus 3 Not Detected (Not Detect); Parainfluenza Virus 4 Not Detected (Not Detect); Respiratory Syncytial Virus Not Detected (Not Detect); SARS-CoV-2 Not Detected (Not Detect)
[2021-03-26] MEDS ORDERED: cefTRIAXone 1,000 MG in 0.9 % Sodium Chloride Mini Bag 100 ML IVPB ONE (13:44)
[2021-03-26] MEDS ORDERED: Naloxone 0.4 MG/ML INJ IVP PRN (14:27)
[2021-03-26] MEDS ORDERED: Acetaminophen 325 MG TABLET PO PRN (14:27)
[2021-03-26 14:39] LABS: VBG HCO3 28 mEq/L (21-27); VBG PCO2 56 mmHg (41-51); VBG PO2 142 mmHg (25-50)
[2021-03-26] MEDS ORDERED: Perflutren Lipid Microsphere 1.3 ML in 0.9 % Sodium Chloride 8.7 ML IVP PRN (14:41)
[2021-03-26] MEDS ORDERED: Ipratropium/Albuterol Neb 3 ML IH PRN (14:59)
[2021-03-26 15:03] LABS: ABG Base Excess 0 mEq/L (-2 to 3); ABG HCO3 28 mEq/L (21-27); ABG Oxygen Saturation 92 % (95-98); ABG PCO2 61 mmHg (35-45); ABG PH 7.27 pH Units (7.32-7.45); ABG PO2 75 mmHg (85-104); ABG TCO2 30 mEq/L (20-26); Blood Gas Modality NIV
[2021-03-26] MEDS: Ipratropium/Albuterol Neb 3 ML IH SCH ×2 (15:53→21:27)
[2021-03-26] MEDS: MethylPREDNISolone 40 MG/ML VIAL IVP SCH (18:22)
[2021-03-26] MEDS: *HR* Heparin 5,000 UNIT/ML VIAL SQ SCH (18:23)
[2021-03-27] MEDS: Ipratropium/Albuterol Neb 3 ML IH SCH ×4 (03:54→19:59)
[2021-03-27] MEDS: MethylPREDNISolone 40 MG/ML VIAL IVP SCH ×2 (05:16→17:37)
[2021-03-27] MEDS: *HR* Heparin 5,000 UNIT/ML VIAL SQ SCH ×2 (05:21→17:39)
[2021-03-27 05:47] LABS: Basophils % 0.1 %; Immature Granulocytes % 0.8 % (0-4); Mean Corpuscular HGB Conc 28.4 g/dL (31.6-35.5); Mean Corpuscular Hemoglobin 25.8 pg (28.0-33.3)
[2021-03-27 05:49] LABS: Hematocrit 34.2 % (35.3-44.9); Hemoglobin 9.7 g/dL (11.5-15.4); Immature Platelets 8.8 % (1.1-6.1); Lymphocytes % 8.5 %; Mean Platelet Volume 11.6 fL (9.4-12.4); Monocytes # 0.2 K/mcL (0.0-1.3); Monocytes % 1.8 %; Neutrophils # 10.6 K/mcL (1.6-8.9); Platelet Count 128 K/mcL (140-400); Red Blood Count 3.76 M/mcL (3.82-4.97); Segmented Neutrophils % 88.8 %; White Blood Count 11.9 K/mcL (4.3-11.1)
[2021-03-27 06:04] LABS: BUN/Creatinine Ratio 26 (6-26); Blood Urea Nitrogen 24 mg/dL (8-23); Calcium 8.7 mg/dL (8.6-10.3); Carbon Dioxide 27 mEq/L (23-29); Chloride 103 mEq/L (98-107); Glucose 205 mg/dL (70-105); Magnesium 2.2 mg/dL (1.6-2.6); Osmolality,Calculated 292 (280-300); Phosphorous 2.9 mg/dL (2.7-4.5); Potassium 3.9 mEq/L (3.5-5.1); Sodium 136 mEq/L (136-145); Troponin I 0.63 ng/mL (< 0.04); eGFR For African Americans > 60 (> 60); eGFR For Non-African Americans > 60 (> 60)
[2021-03-27] MEDS: cefTRIAXone 1,000 MG in Water for inj. (sterile) 10 ML IVP SCH (08:47)
[2021-03-27] MEDS ORDERED: Azithromycin 500 MG in 0.9 % Sodium Chloride 250 ML IVPB SCH (09:00)
[2021-03-27] MEDS: Budesonide/Formoterol 80/4.5 1 PUFF INH IH SCH (19:59)
[2021-03-27] MEDS: hydrALAZINE 25 MG TABLET PO SCH (20:26)
[2021-03-27] MEDS: amLODIPine 5 MG TABLET PO SCH (20:26)
[2021-03-27] MEDS: *HR* LORazepam 0.5 MG TABLET PO PRN (21:00)
[2021-03-28 02:29] LABS: Hematocrit 32.9 % (35.3-44.9); Hemoglobin 9.6 g/dL (11.5-15.4); Mean Corpuscular HGB Conc 29.2 g/dL (31.6-35.5); Mean Corpuscular Hemoglobin 26.7 pg (28.0-33.3); Mean Corpuscular Volume 91.4 fL (83.0-100.0); Mean Platelet Volume 11.4 fL (9.4-12.4); Platelet Count 153 K/mcL (140-400); Red Cell Distribution Width 13.8 % (11.5-14.5); White Blood Count 21.3 K/mcL (4.3-11.1)
[2021-03-28 02:49] LABS: BUN/Creatinine Ratio 38 (6-26); Blood Urea Nitrogen 29 mg/dL (8-23); Calcium 8.8 mg/dL (8.6-10.3); Carbon Dioxide 27 mEq/L (23-29); Chloride 107 mEq/L (98-107); Glucose 141 mg/dL (70-105); Magnesium 2.1 mg/dL (1.6-2.6); Osmolality,Calculated 296 (280-300); Potassium 4.2 mEq/L (3.5-5.1); Sodium 139 mEq/L (136-145); eGFR For African Americans > 60 (> 60); eGFR For Non-African Americans > 60 (> 60)
[2021-03-28 02:52] LABS: Troponin I 0.44 ng/mL (< 0.04)
[2021-03-28] MEDS: Ipratropium/Albuterol Neb 3 ML IH SCH ×4 (03:40→19:51)
[2021-03-28] MEDS: *HR* Heparin 5,000 UNIT/ML VIAL SQ SCH ×2 (05:46→18:24)
[2021-03-28] MEDS ORDERED: cloNIDine HCL 0.1 MG TABLET PO SCH (09:00)
[2021-03-28] MEDS: cefTRIAXone 1,000 MG in Water for inj. (sterile) 10 ML IVP SCH (09:18)
[2021-03-28] MEDS: Loratadine 10 MG TABLET PO SCH (09:18)
[2021-03-28] MEDS: amLODIPine 5 MG TABLET PO SCH ×2 (09:18→20:00)
[2021-03-28] MEDS: Isosorbide MONOnitrate (24 HR) 30 MG TAB.ER.24H PO SCH (09:18)
[2021-03-28] MEDS: hydrALAZINE 25 MG TABLET PO SCH ×3 (09:18→20:00)
[2021-03-28] MEDS: Furosemide 20 MG TABLET PO SCH (09:19)
[2021-03-28] MEDS: Aspirin Enteric Coated 81 MG Tablet PO SCH (09:19)
[2021-03-28] MEDS: predniSONE 20 MG TABLET PO SCH (09:20)
[2021-03-28] MEDS: Budesonide/Formoterol 80/4.5 1 PUFF INH IH SCH ×2 (10:45→19:51)
[2021-03-28 18:13] LABS: Acinetobacter baumannii by PCR Not Detected (Not Detect); Candida albicans by PCR Not Detected (Not Detect); Candida glabrata by PCR Not Detected (Not Detect); Candida krusei by PCR Not Detected (Not Detect); Candida parapsilosis by PCR Not Detected (Not Detect); Candida tropicalis by PCR Not Detected (Not Detect); Enterobacter cloacae Cmplx PCR Not Detected (Not Detect); Enterobacteriaceae by PCR Not Detected (Not Detect); Enterococcus by PCR Not Detected (Not Detect); Escherichia coli by PCR Not Detected (Not Detect); Klebsiella oxytoca by PCR Not Detected (Not Detect); Klebsiella pneumoniae by PCR Not Detected (Not Detect); Proteus by PCR Not Detected (Not Detect); Pseudomonas aeruginosa by PCR Not Detected (Not Detect); Serratia marcescens by PCR Not Detected (Not Detect); Staphylococcus aureus by PCR Not Detected (Not Detect); Staphylococcus by PCR DETECTED (Not Detect); Streptococcus agalactiae(B)PCR Not Detected (Not Detect); Streptococcus by PCR Not Detected (Not Detect); Streptococcus pneumoniae PCR Not Detected (Not Detect); Streptococcus pyogenes (A) PCR Not Detected (Not Detect); mecA Methicillin-Resist Gene Not Detected (Not Detect)
[2021-03-28] MEDS: cloNIDine HCL 0.1 MG TABLET PO SCH (20:01)
[2021-03-28] MEDS: *HR* LORazepam 0.5 MG TABLET PO PRN (20:08)
[2021-03-29] MEDS: Ipratropium/Albuterol Neb 3 ML IH SCH ×4 (04:07→20:19)
[2021-03-29] MEDS: *HR* Heparin 5,000 UNIT/ML VIAL SQ SCH ×2 (06:01→18:07)
[2021-03-29] MEDS: Budesonide/Formoterol 80/4.5 1 PUFF INH IH SCH ×2 (08:44→20:19)
[2021-03-29] MEDS: Isosorbide MONOnitrate (24 HR) 30 MG TAB.ER.24H PO SCH (09:17)
[2021-03-29] MEDS: Loratadine 10 MG TABLET PO SCH (09:17)
[2021-03-29] MEDS: hydrALAZINE 25 MG TABLET PO SCH ×3 (09:17→19:36)
[2021-03-29] MEDS: Furosemide 20 MG TABLET PO SCH (09:17)
[2021-03-29] MEDS: amLODIPine 5 MG TABLET PO SCH ×2 (09:17→19:36)
[2021-03-29] MEDS: Aspirin Enteric Coated 81 MG Tablet PO SCH (09:17)
[2021-03-29] MEDS: predniSONE 20 MG TABLET PO SCH (09:17)
[2021-03-29] MEDS: cloNIDine HCL 0.1 MG TABLET PO SCH (19:36)
[2021-03-30] MEDS: Ipratropium/Albuterol Neb 3 ML IH SCH ×2 (04:03→11:15)
[2021-03-30] MEDS: *HR* Heparin 5,000 UNIT/ML VIAL SQ SCH (05:40)
[2021-03-30] MEDS: Furosemide 20 MG TABLET PO SCH (09:44)
[2021-03-30] MEDS: hydrALAZINE 25 MG TABLET PO SCH (09:44)
[2021-03-30] MEDS: amLODIPine 5 MG TABLET PO SCH (09:44)
[2021-03-30] MEDS: Loratadine 10 MG TABLET PO SCH (09:44)
[2021-03-30] MEDS: Isosorbide MONOnitrate (24 HR) 30 MG TAB.ER.24H PO SCH (09:44)
[2021-03-30] MEDS: Aspirin Enteric Coated 81 MG Tablet PO SCH (09:45)
[2021-03-30] MEDS: predniSONE 20 MG TABLET PO SCH (09:45)
[2021-03-30] MEDS: Budesonide/Formoterol 80/4.5 1 PUFF INH IH SCH (11:15)
[2021-03-30 12:18] VITALS: BP 104/54; PULSE 78; TEMP 98.3; O2SAT 98
== END 2021-03-30 15:38 | disposition home or self-care (01) | DRG 871 ==
LOC: EMEROOARM 11:46 → SUATTDRO 16:30 → 2ANU 16:30
PROVIDERS: ADMIT Family Medicine; ATTEND Internal Medicine